=== PATIENT | female | born 1990 | race African-American/Black ===

== ENCOUNTER 2022-06-21 19:16 | Outpatient (CLI) | payer MEDICAID, SELFPAY ==
[2022-06-21 21:15] LABS: Cholesterol* 173 mg/dL (90-199); HDL Cholesterol* 63 mg/dL (>=50); LDL Cholesterol Calculated 54 mg/dL (<100); Triglycerides* 278 mg/dL (40-149)
[2022-06-21 21:53] LABS: HIV 1/2/P24 Combo Screen* Negative (Negative)
[2022-06-21 22:10] LABS: Hepatitis B Surface Antigen* Negative (Negative)
[2022-06-21 22:27] LABS: Hepatitis C Virus Antibody* Negative (Negative)
[2022-06-21 22:59] LABS: Chlamydia DNA Amplified* NOT DETECTED (No Detected); GC DNA Amplified* NOT DETECTED (No Detected)
[2022-06-23 23:16] LABS: Rapid Plasma Reagin (RPR) Non Reactive (Non Reactive)
== END 2022-06-21 19:17 | disposition home or self-care (01) ==
PROVIDERS: Visit Provider Registered Nurse
DX: Z01.419 Encounter for gynecological examination (general) (routine) without abnormal findings (principal); I10 Essential (primary) hypertension; E66.01 Morbid (severe) obesity due to excess calories; F41.9 Anxiety disorder, unspecified; Z11.3 Encounter for screening for infections with a predominantly sexual mode of transmission; Z13.9 Encounter for screening, unspecified; Z11.4 Encounter for screening for human immunodeficiency virus [HIV]
CPT/HCPCS: 80061; 86592; 86703; 86803; 87340; 87491; 87591

== ENCOUNTER 2024-01-29 17:10 | Emergency (ER) | payer MEDICAID, SELFPAY ==
[2024-01-29 17:15] VITALS: BP 133/87; PULSE 82; RESP 20; TEMP 36.7; O2SAT 99; BMI 37.8
--- NOTE | 2024-01-29 17:24 | ED.ALLEREA ---
HPI - Allergic Reaction General Time Seen by Provider: 17:24 Date Seen: 01/29/24 Chief complaint: Allergic Reaction Stated complaint: skin irritation Time Seen by Provider: 01/29/24 17:24 Source: patient and RN notes reviewed Mode of arrival: ambulatory Limitations: no limitations History of Present Illness HPI narrative: Swetha is a very pleasant 33-year-old female with a history of sickle cell trait, hypertension who comes to the emergency room with the onset of hives on her left arm. Patient states that she woke in the night and had itching in her upper shoulder with just a small area or bump. He took Benadryl at that time at 0200 hours. This afternoon she has had increasing redness raise areas on her left arm. Two large baseball sized areas on the dorsal and volar aspect of her upper arm as well as a smaller area on her shoulder. They are very itchy. She cannot recall any bug bites and has not been outside. She has no pets in her home. She notes that she has been clearing her throat a little bit today but denies a sore throat. Adamantly denies possible exposure to tick bites that she does not really go into the andre. He denies any new perfumes lotions or foods. Should this is not happened to her in the past. She denies cough or congestion. Related Data Home Medications ?Medication ?Instructions ?Recorded ?Confirmed famotidine 40 mg tablet 40 mg PO .hs 06/21/22 01/29/24 cholecalciferol (vitamin D3) 25 25 mcg PO DAILY 07/08/23 01/29/24 mcg (1,000 unit) tablet cyanocobalamin (vitamin B-12) 1,000 mcg PO DAILY 07/08/23 01/29/24 1,000 mcg tablet hydrochlorothiazide 25 mg tablet 25 mg PO DAILY 07/08/23 01/29/24 losartan 100 mg tablet 100 mg PO DAILY 07/08/23 01/29/24 multivitamin 1 tab PO DAILY 07/08/23 01/29/24 Previous Rx's ?Medication ?Instructions ?Recorded omeprazole 40 mg capsule,delayed 40 mg PO QDAY GERD #90 caps 06/27/22 release Allergies Allergy/AdvReac Type Severity Reaction Status Date / Time droperidol Allergy Severe Anxiety Verified 01/29/24 17:20 Review of Systems Status of ROS Reports: 10 or more systems reviewed and unremarkable except as noted in History and below Const Denies: fever, chills or fatigue Eyes Denies: change in vision ENMT Denies: throat pain, neck pain, throat swelling, difficulty swallowing or nasal congestion Cardio Denies: chest pain, swelling of feet/ankles, lightheadedness or shortness of breath with exertion Resp Denies: shortness of breath, cough or wheezing GI Denies: abdominal pain, nausea, vomiting or difficulty swallowing Musculo Denies: neck pain Endo Denies: fatigue Allergy/Immuno Denies: throat swelling or wheezing [facility] Medical History Vaginal delivery ?O80 - Encounter for full-term uncomplicated delivery (ICD-10) induced hypertension ?O13.9 - Gestational [-induced] hypertension without significant proteinuria, unspecified trimester (ICD-10) GERD (gastroesophageal reflux disease) ?K21.9 - Gastro-esophageal reflux disease without esophagitis (ICD-10) Gastrointestinal complaints, nonspecific ?R19.8 - Other specified symptoms and signs involving the digestive system and abdomen (ICD-10) Surgical History History of tonsillectomy ?Z90.89 - Acquired absence of other organs (ICD-10) History of cervical cerclage ?Z98.890 - Other specified postprocedural states (ICD-10) H/O gastric sleeve ?Z90.3 - Acquired absence of stomach [part of] (ICD-10) Family History Mother High blood pressure Father High blood pressure Social History Smoking Status: Current every day smoker Do you use any of these nicotine containing products: None How often do you have a drink containing alcohol: never How often do you have six or more drinks on one occasion: Never AUDIT-C Alcohol total score: 0 Non-prescribed substance use: denies use Little interest or pleasure in doing things: several days Feeling down, depressed, or hopeless: several days Exam Narrative: Exam Narrative: Alert and oriented. Mentation normal speech is normal. Face symmetrical without any swelling. No swelling of the mucous membranes. Heart with regular rate and rhythm and lungs are clear in all lung albarran. Abdomen soft. Lower extremities without edema. Examination of the left arm shows a softball sized area of erythema with leading edge Measuring about 7 cm on the area just below the deltoid and on the volar surface as well. on the shoulder there is a quarter-size area of erythema with leading edge. Her on her back there is a flat area of erythema that is pruritic. No other areas noted on trunk abdomen legs. Unable to ascertain central clearing. Not excessively warm to the touch. Const: Vital Signs, click to edit/add: Vital Signs - 24 hr 01/29/24 17:15 Temperature 98.1 F Pulse Rate [Pulse Oximeter] 82 Respiratory Rate 20 Blood Pressure [Ri ght Upper Arm] 133/87 Pulse Oximetry 99 Oxygen Delivery Me thod Room Air Documenting provider has reviewed patient's vital signs: yes Course Course ED Course: At this time patient cannot identify any new foods perfumes detergents and systemic reaction would be unusual as the lesions appear to be limited to the left upper extremity. Patient is adamant that she did not have opportunity to experience any tick bites. He will check for strep and check a urinalysis to ensure this is not representing in a vasculitis wound where we would noted increased protein in the urine. Will give patient 50 of Benadryl and 60 mg of prednisone. Vital Signs Vital signs: Initial Vital Signs Temperature 98.1 F 01/29/24 17:15 Temperature Source Temporal Artery Scan 01/29/24 17:15 Pulse Rate 82 01/29/24 17:15 Respiratory Rate 20 01/29/24 17:15 Blood Pressure 133/87 01/29/24 17:15 Blood Pressure Mean 102 01/29/24 17:15 Blood Pressure Position Sitting 01/29/24 17:15 Pulse Oximetry 99 01/29/24 17:15 Oxygen Delivery Method Room Air 01/29/24 17:15 Vital Signs Temperature 98.1 F 01/29/24 17:15 Pulse Rate 82 01/29/24 17:15 Respiratory Rate 20 01/29/24 17:15 Blood Pressure 133/87 01/29/24 17:15 Pulse Oximetry 99 01/29/24 17:15 Oxygen Delivery Method Room Air 01/29/24 17:15 Temperature 98.1 F 01/29/24 17:15 Pulse Rate 82 01/29/24 17:15 Respiratory Rate 20 01/29/24 17:15 Blood Pressure 133/87 01/29/24 17:15 Pulse Oximetry 99 01/29/24 17:15 Oxygen Delivery Method Room Air 01/29/24 17:15 Medications Administered Medications: Discontinued Medications Generic Name Dose Route Start Last Admin Trade Name Saadia PRN Reason Stop Dose Admin Diphenhydramine HCl 50 mg 01/29/24 17:31 01/29/24 17:35 Diphenhydramine 25 Mg Capsule PO 01/29/24 17:32 50 mg ONCE ONE Administration Prednisone 60 mg 01/29/24 17:31 01/29/24 17:38 Prednisone 20 Mg Tablet PO 01/29/24 17:32 60 mg ONCE ONE Administration MDM - Allergic Reaction MDM Narrative Medical decision making narrative: 1. Hives-at this time I am unable to ascertain etiology. Given the fact the lesions localized to the left arm I suspect a contact allergy but cannot ascertain what that might be. No evidence of strep. Lung sounds are clear. Urinalysis without proteinuria. Patient was given Benadryl 50 mg and prednisone 60 mg. No significant change at this time but will allow patient to go home. She has no swelling of the mucous membranes, problems with swallowing, vomiting. 2. Disposition-home at this time. Prednisone 20 mg p.o. b.i.d. x5 days. Would continue antihistamine in the form of either Zyrtec or Benadryl. Return to the emergency room for worsening symptoms, swelling of the mucous membranes, difficulty swallowing, vomiting and as needed. Medical Records Attestation: I reviewed the patient's medical records. Lab Data Attestation: I reviewed the patient's lab results. Labs: Lab Results 01/29/24 01/29/24 Range/Units 17:40 18:17 Urine Color Yellow (Yellow) Urine Appearance Clear (Clear) Urine pH 5.0 (5.0-8.5) Ur Specific [place] 1.015 (1.000-1.030) Urine Protein Negative (Negative) Urine Glucose (UA) Negative (Negative) Urine Ketones Negative (Negative) Urine Blood Negative (Negative) Urine Nitrite Negative (Negative) Urine Bilirubin Negative (Negative) Urine Urobilinogen 0.2 (0.2-1.0) Ur Leukocyte Esterase Negative (Negative) Urine RBC 0-2 (0-2) Urine WBC 0-2 (0-5) Ur Squamous Epith Cells Few (None-Few) Urine Bacteria None (None) Group A Strep DNA NOT DETECTED (Not Detectd) Discharge Plan Discharge Clinical Impression: Hives Patient Disposition: Home, Self-Care Condition: Unchanged Additional Instructions: At this time your strep test is negative, your urinalysis does not show any evidence of protein to indicate a vasculitis. I am not sure what is causing this. Will have you continue an antihistamine by taking either 1 of the following Option 1-Benadryl 50 mg every 6 hours last dose tomorrow evening. Option 2-Zyrtec 10 mg every 12 hours last dose tomorrow evening I would like you to continue prednisone for the next 4 days. This is in the [employer] machine for you. Return to the emergency room for worsening symptoms and as needed. Prescriptions: No Action famotidine 40 mg tablet 40 mg PO .hs omeprazole 40 mg capsule,delayed release(DR/EC) 40 mg PO QDAY Qty: 90 3RF multivitamin Tablet 1 tab PO DAILY cyanocobalamin (vitamin B-12) 1,000 mcg tablet 1,000 mcg PO DAILY hydrochlorothiazide 25 mg tablet 25 mg PO DAILY losartan 100 mg tablet 100 mg PO DAILY cholecalciferol (vitamin D3) 25 mcg (1,000 unit) tablet 25 mcg PO DAILY Follow Up/Referrals: Provider,Not a Local [Primary Care Provider] - Stand Alone Forms: [employer] Info Instructions
[2024-01-29] MEDS: diphenhydrAMINE 25 MG CAPSULE 50 MG PO (17:35)
--- OUTSIDE RECORDS SUMMARY | 2024-01-29 17:37 | XMS_ITS | Clinical Summary ---
Author Organization [facility] Address [place], [place] [address] Care Team Providers Care Nurse Gynecology Name Role Phone Que SALDAÑA MD, Thaddeus Michelle Unavailable [phone] Meg Maria MD Primary Care Prov ider Allergies Active Allergy Reactions Criticality Noted Date Comments Droperidol Anxiety 10/13/2014 Nsaids (Non-Steroidal Anti-Inflammatory Drug) Other - Describe In Comment Field High 06/28/2018 Ulcers gastric sleve Ulcers gastric sleeve; (Abstracted from [facility] Everywhere) Medications Medication Sig Dispensed Refills Start Date End Date Status Blood Pressure Monitor KitIndications:HTN (hypertension) Frequency of testin-3 times a week 1 Each 01/13/2023 Active albuterol HFA (Ventolin HFA) 90 mcg/actuation inhalerIndications :Mild intermittent asthma with exacerbation Inhale 1-2 Puffs by mouth every 4 hours if needed for Wheezing. 18 g 02/17/2023 Active cyanocobalamin (Vitamin B-12) 1,000 mcg tabletIndications: S/P laparoscopic sleeve gastrectomy Take 1 Tablet (1,000 mcg) by mouth once daily. 90 Tablet 3 05/23/2023 Active famotidine (PEPCID) 40 mg tabletIndications: Chronic GERD Take once daily as needed. 05/23/2023 Active multivitamin (MVI) tabletIndications: S/P laparoscopic sleeve gastrectomy Take 1 Tablet by mouth once daily. 90 Tablet 3 05/23/2023 Active cholecalciferol (Vitamin D) 1,000 unit capsuleIndications :S/P laparoscopic sleeve gastrectomy Take 1 Capsule (1,000 units) by mouth once daily. 90 Capsule 3 05/23/2023 Active omeprazole (PRILOSEC) 40 mg Delayed-Release capsuleIndications :Chronic GERD Take 1 Capsule (40 mg) by mouth once daily before a meal. 90 Capsule 3 06/19/2023 Active nicotine 14 mg/24 hr (NICODERM; HABITROL) 14 mg/24 hr patchIndications:T obacco consumption Apply 1 Patch on dry, clean, hairless skin once daily. 14 Patch 3 09/07/2023 Active losartan (COZAAR) 100 mg tabletIndications: HTN (hypertension) TAKE 1 TABLET(100 MG) BY MOUTH EVERY DAY 90 Tablet 3 09/13/2023 Active hydroCHLOROthiazid e 25 mg tabletIndications: HTN (hypertension) TAKE 1 TABLET(25 MG) BY MOUTH EVERY DAY 90 Tablet 2 10/06/2023 Active azithromycin (ZITHROMAX) 250 mg tabletIndications: Acute pharyngitis, unspecified etiology Take 500 mg (2 tabs) by mouth on day 1, then 250 mg (1 tab) daily for days 2-5. 6 Tablet 12/05/2023 Discontinue d(*Med complete/Re gimen complete/Le zulay of care change) Active Problems Problem Noted Date Diagnosed Date Pap smear for cervical cancer screening 09/18/19 24 Overview: 08/2023 NIL/HPV Negative Plan: HPV based testing due 08/2028 Thiamine deficiency 05/23/2023 Vitamin D deficiency 05/23/2023 Chronic GERD 05/12/2022 HTN (hypertension) 05/12/2022 Mild intermittent asthma with exacerbation 05/12 Anxiety and depression 11/30/2020 S/P laparoscopic sleeve gastrectomy 04/30/2018 Overview: Laparoscopic vertical sleeve gastrectomy and hiatal hernia repair with suture PLEASE DO NOT SCHEDULE ELECTIVE SURGERY FOR 30 DAYS, UNTIL AFTER 05/30/2018 Laparoscopic vertical sleeve gastrectomy and hiatal hernia repair with suture PLEASE DO NOT SCHEDULE ELECTIVE SURGERY FOR 30 DAYS, UNTIL AFTER 05/30/2018 Prediabetes 11/03/2017 Gastroesophageal reflux disease without esophagi tis 12/18/2014 (sickle cell trait) 05/11/2013 Overview: Electrophoresis from [facility] confirms sickle trait, 04/18/2013. Overview: Electrophoresis with 36% hgb S Chronic daily headache 10/16/2012 Resolved Problems Problem Noted Date Diagnosed Date Resolved Date -induced hypertensi on in third trimester 04/01/2015 05/23/2023 Vaginal delivery 03/31/2015 05/23/2023 Carrier or suspected carrier of group B Streptococcus 03/03/2015 05/23/2023 Anemia, antepartum(648.23) 03/02/2015 0 01/05/2024 Supervision of other normal 12/18/2014 01/05/2024 Overview: Transfer OB:UA/UC, and Varicella ordered. OB transfer from [facility], Care Everywhere Records reviewed. Labs: type and screen- O+, UPT-positive, Hgb-11.6, WBC-9.27, PLT-246, HBS-non reactive, RPR-non reactive, Rubella-positive, HIV-non reactive, GC/Chlamydia-09/18/14 negative, NT Testing-, Quad screen-, CF-, Dating US-09/17/14 11 w PARDEEP 04/08/15. 04/18/13-positive for sickle cell trait. 2009 & 2013 Vag delivery; Cerclage, [facility] 2007 demiese, twins @ 16 w 10/2014 Cerclage, Que Group B beta streptococcus positive. Cervical cerclage suture present 11/21/2014 05/23/2023 Supervision of other normal 10/13/2014 02/12/2015 Overview: Ultrasound at [facility] 09/17/2014 at 11 weeks, estimated due date 04/08/2015. [facility] labs 09/18/2014: O positive, Hep B NR, HIV NR, RPR NR, Hemoglobin 11.6 gm/dl, Pap negative. Chlamydia and GC both negative. Thaddeus Grey III, MD .............. 10/13/2014 2:40 PM Cerclage placed 5/8/15 Threatened premature labor, unspecified as to episode of care 08/29/2007 10/13/2014 Twin , antepartum 08/24/2007 0 10/13/2014 Incompetence of cervix 08/24/200701/04 Supervision of high-risk pre gnancy of young primigravida 08/24/2007 10/13/2014 Unspecified antepartum hemor rhage, unspecified as to episode of care(641.90) 08/24/2007 10/13/2014 Anemia, unspecified 08/24/2007 10/14/19 15 Encounters Date Type Department Care Team Description 01/26/2024 2:15 PM CDT Orders Only [facility] [address] [place] [address] Lab, [place] Lab 01/26/2024 Travel 01/24/2024 Telephone [facility] [address] [place] [address] Meg Maria MD Lab (Pt following up on message dated 01/08/24 regarding Pt having a B12 shot) 01/05/2024 1:00 PM CDT Office Visit [facility] [address] [place] [address] Meg Maria MD Lab 01/05/2024 Travel 01/02/2024 Telephone [facility] [address] [place] [address] Meg Maria MD Appointment 12/05/2023 E-Visit [facility] [address] [place] [address] Meg Maria MD Strep from Last 3 Months Immunizations Name Administration Dates Next Due COVID-19 vaccine ([employer] NTech 30mcg/0.3mL) ELVA POON 01/16/2021 DTP 12/28/1994, 4,10/28/1993,08/26 Hepatitis B (Peds) 01/10/2002, 2,01/17/2001,07/05 Human Papilloma Virus Vaccine 02/20/2007, 007 Influenza Virus, Unspecified 03/26/2018 Influenza, IIV4 04/02/2015, 3,04/01/2010,04/08 MMR 01/17/2001,1993 Meningococcal Vaccine (Menomune) 12/20/2006 Oral Polio Vaccine 12/28/1994, 4,10/28/1993,08/26 Tdap 01/05/2024, 4,09/05/2013,01/19,12/28/1994,04/21/1994,10/28/1993 ,1993 Varicella Vaccine 12/20/2006 Family History Medical History Relation Name Comments Good Health Daughter Other Father Hgb S, Stroke Father Unknown Maternal Grandfather Heart Disease Mother On BP med to r egulate PVC 's Other Mother palpitations Good Health Paternal Grandfather Parkinsonism Paternal Grandfather Good Health Paternal Grandmother Good Health Sister Good Health Son Relation Name Status Comments Daughter Alive Father Alive Maternal Grandfather Maternal Grandmother (Age 56) he art disease Mother Alive Paternal Grandfather Alive Paternal Grandmother Alive Sister Alive Son Alive Social History Tobacco Use Types Packs/Day Years Used Date Smoking Tobacco: Every Day Cigarettes 0.3 16.2 Started: 11/09/2007 Cigars Smokeless Tobacco: Former Quit: 10/10/2012 Tobacco Cessation:Ready to Q uit: Yes; Counseling Given: No Alcohol Use Standard Drinks/Week Comments Yes 21 (1 standard drink = 0.6 oz pu re alcohol) 2-3 glasses wine per day PHQ-2 Answer Date Recorded PHQ-2 TOTAL SCORE 1 05/23/2023 Social Connections Answer Date Recorded Frequency of Communication with Friends and Fami ly 0 10/09/2023 Alcohol Use Answer Date Recorded How often do you have a drink containing alcohol ? 4 04/24/2023 How many drinks containing a lcohol do you have on a typical day when you are drinking? 0 04/24/2023 How often do you have five or more drinks on one occasion? 0 04/24/2023 Financial Resource Strain Answer Date R ecorded Difficulty of Paying Living Expenses 2 10/09/2023 Difficulty of Paying Living Expenses 1 10/09/2023 Food Insecurity Answer Date Recorded Worried About Running Out of Food in the Last Ye ar 2 10/09/2023 Transportation Needs Answer Date Record ed Lack of Transportation (Medical) 1 10/09/2023 Housing Stability Answer Date Recorded Unable to Pay for Housing in the Last Year 1 10/09/2023 Sex and Gender Information Value Date Recorded Sex Assigned at Not on file Gender Identity Not on file Sexual Orientation Not on file Obstetrics History Para Term AB IAB SAB Ectopic Multiple Livin g Live Births 5 3 3 0 2 0 1 0 0 3 3 Date Outcome GA Total Labor Labor/2nd/3rd Weight Sex Type Anes PTL Jazmin A1 A5 Name Clin AB ELECTI VE AB Demis e 2007 SAB 16w 0d Comments:Twins 2009 Term 37w 1d 4h 00m/ 3.77 kg (8 lb 5 oz) M Vag Epidur al Livin g K'daniela i [facility] Comments:Cerclage 2013 Term 39w 6d 12h 00m/ 3.77 kg (8 lb 5 oz) F Vag Epidur al Livin g Nikya [facility] Comments:Cerclage 2014 Term 38w 6d 3.94 kg (8 lb 11 oz) F Epidur al Y Livin g 8 9 Tania h Helen Complications:None Comments O Pos GBS Pos 10/2013 Last Filed Vital Signs Vital Sign Reading Time Taken Comments Blood Pressure 136/88 01/05/2024 1:05 PM CDT Pulse 63 01/05/2024 1:05 PM CDT Temperature 36.8 ??C (98.2 ??F) 10/09/2023 11:58 AM C DT Respiratory Rate 20 11/08/2017 1:15 PM CDT Oxygen Saturation 98% 01/05/2024 1:05 PM CDT Inhaled Oxygen Concentration - - Weight 99.3 kg (219 lb) 10/09/2023 3:14 PM CDT w ith shoes Height 165 cm (5' 4.96) 09/07/2023 9:13 AM CDT Body Mass Index 36.49 09/07/2023 9:13 AM CDT Plan of Treatment Health Maintenance Due Date Last Done Comments Pneumococcal series for age 6-64 (1 of 2 - PCV) 08/27/1995 Hepatitis C screening for ag e 18-79 08/27/2007 COVID-19 vaccine series ( season) 2023 06/08/2021, 01/16/2021 Influenza for age 9-49 02/11/2024 8, 04/02/2015, 04/18/2013, Additional history exists Depression screening for age 12+ 05/26/2024 05/26/2023, 05/23/2023, 01/13/2023, Additional history exists BMI (ht and wt on same day) for age 18+ 09/06/2024 09/07/2023, 01/13/2023, 11/26/2019, Additional history exists Pap test for age 21-65 09/06/2026 , 09/07/2023, 06/21/2022, Additional history exists Tetanus booster 01/04/2034 01/05/2024, 0 01/2014, 09/05/2013, Additional history exists HIV for age 15-65 Completed 05/23/2023, 07/31/2015 Tdap Completed 01/05/2024, 0 01/2014, 09/05/2013, Additional history exists Goals Goal Patient Goal Type Associated Problems Recent Progress Patient-Stated? Author BLOOD PRESSURE - Maintains BP less than 130/80 Blood Pressure Christy Sorto Procedures Procedure Name Priority Date/Time Associated Diagnosis Comments VITAMIN B12 Routine 01/26/2024 2:09 PM CDT S/P laparoscopic sleeve gastrectomy BASIC METABOLIC PANEL Routine 01/05/2024 1:50 PM CDT S/P laparoscopic sleeve gastrectomy VITAMIN B1 (THIAMINE) BLOOD Routine 01/05/2024 1:50 PM CDT S/P laparoscopic sleeve gastrectomy VITAMIN B12 Routine 01/05/2024 1:50 PM CDT S/P laparoscopic sleeve gastrectomy HPV THIN PREP Routine 09/07/2023 9:50 AM CDT Pap smear for cervical cancer screening ANTI HIV 1/2 Routine 05/23/2023 12:20 PM [employer] OFFICE DEVELOPER Vaginal discharge from Last 3 Months or Most Recently Relevant to Health Maintenance Results * VITAMIN B12 (01/26/2024 2:09 PM CDT) Only the most recent of2 resultswithin the time period is included. VITAMIN B12 1,116 232 - 1,245 pg/mL 01/27/2024 12:10 AM CDT [facility] Blood BLOOD SPECIMEN / Unknown Venipuncture / Unknown 01/26/2024 2:09 PM CDT 01/26/2024 2:09 PM CDT Narrative [facility] - 01/27/2024 12:10 AM CDT Biotin supplements may cause clinically significant interference for this test assay. ??If interference is suspected, it is strongly recommended that biotin is discontinued for at least one week prior to retesting. Meg Maria MD CHEMISTRY [facility] [address] [place] [id number], * VITAMIN B1 (THIAMINE) BLOOD (01/05/2024 1:50 PM CDT) Pathologist [facility] VITAMIN B1 WHL BLD 104.1 66.5 - 200.0 nmol/L 01/08/2024 12:[address] [facility] Blood BLOOD SPECIMEN / Unknown Venipuncture / Unknown 01/05/2024 1:50 PM CDT 01/05/2024 1:51 PM CDT Narrative [facility] - 01/08/2024 12:07 PM CDT Test(s) 899295-Jur. B1, Whole Blood was developed and its performance characteristics determined by [employer]. It has not been cleared or approved by the Food and Drug Administration. Performed at: ??[address] ??[id number] Traveling Phlebotomist: Oh Santana MD, Phone: ??[phone] Meg Maria MD SEND OUTS [facility] ([facility]) [address] [place] [address], * (ABNORMAL) BASIC METABOLIC PANEL (01/05/2024 1:50 PM CDT) SODIUM 139 136 - 145 mmol/L 01/06/2024 1:26 AM CDT [facility] POTASSIUM 4.5 3.5 - 5.1 mmol/L 01/06/2024 1:26 AM T [facility] CHLORIDE 104 98 - 107 mmol/L 01/06/2024 1:26 AM [facility] CO2,TOTAL 27 22 - 29 mmol/L 01/06/2024 1:26 AM [facility] ANION GAP 8 5 - 18 01/06/2024 1:26 AM [facility] GLUCOSE 100(H) 70 - 99 mg/dL 01/06/2024 1:26 AM T [facility] CALCIUM 9.4 8.6 - 10.0 mg/dL 01/06/2024 1:26 AM [facility] BUN 15 6 - 20 mg/dL 01/06/2024 1:26 AM [facility] CREATININE 0.84 0.50 - 0.90 mg/dL 01/06/2024 1:26 AM [facility] BUN/CREAT RATIO 18 10 - 20 1:26 AM [facility] eGFR >90 >90 mL/min/1.7 3m2 01/06/2024 1:26 AM [facility] Comment:As of 2021, eG FR is calculated by the CKD-EPI creatinine equation without race adjustment. ??eGFR can be influenced by muscle mass, exercise, and diet. ??The reported eGFR is an estimation only and is only applicable if the renal function is stable. Blood BLOOD SPECIMEN / Unknown Venipuncture / Unknown 01/05/2024 1:50 PM CDT 01/05/2024 1:51 PM CDT Meg Maria MD CHEMISTRY Performing Organization Address [facility]/ZIP Co de Phone Number [facility] [address] * HPV HIGH RISK (09/07/2023 9:50 AM CDT) TYPE 16 Negative Negative 09/11/2023 5:12 PM CDT [facility] TYPE 18 Negative Negative 09/11/2023 5:12 PM CDT [facility] OTHER HIGH RISK TYPES Negative Negative 09/11/2023 5:12 PM CDT [facility] Other (Cervical) Non-Blood / Unknown 09/07/2023 9:50 AM CDT 09/07/2023 5:37 PM CDT Narrative [facility] - 09/11/2023 5:12 PM CDT HPV types 16, 18, 31, 33, 35, 39, 45, 51, 52, 56, 58, 59, 66 and 68 DNA were undetectable or below the pre-set threshold. Methodology: Chelsey Earnest 4800 HPV Test Rodolfo Peña DO MICROBIOLOGY Performing Organization Address [facility] Co de Phone Number [facility] [address] * ANTI HIV 1/2 (05/23/2023 12:20 PM CREDIT FRONT OFFICE DEVELOPER) HIV-1/HIV-2 SCREEN Non-Reacti ve Non-Reacti ve 05/23/2023 9:40 PM CREDIT FRONT OFFICE DEVELOPER [facility] Comment:HIV-1 p24 and HIV-1/ HIV-2 Ab Not Detected. Blood BLOOD SPECIMEN / Unknown Venipuncture / Unknown 05/23/2023 12:20 PM CREDIT FRONT OFFICE DEVELOPER 05/23/2023 12:20 PM CREDIT FRONT OFFICE DEVELOPER Meg Maria MD SEND OUTS [facility] [employer] [address] [place] [address], from Last 3 Months or Most Recently Relevant to Health Maintenance Advance Directives * Full Code (Latest Code Status on File) Date Activated Date Inactivated Comments 03/31/2015 7:08 AM 04/02/2015 3:22 PM * Full Code Date Activated Date Inactivated Comments 03/30/2015 9:42 PM 03/31/2015 7:08 AM * Full Code Date Activated Date Inactivated Comments 03/30/2015 4:56 PM 03/30/2015 9:42 PM * Full Code Date Activated Date Inactivated Comments 03/11/2015 5:58 PM 03/11/2015 10:14 PM * Full Code Date Activated Date Inactivated Comments 03/06/2015 11:37 AM 03/07/2015 2:37 AM Care Teams Nurse Gynecology Relationship Specialty Start Date End Date Meg Maria MD [address] [place] [phone] PCP - General Family Practice 08/03/23 Thaddeus Grey III, MD [employer] Obstetrics and Gynecology 03/26/15
[2024-01-29] MEDS: predniSONE 20 MG TABLET 60 MG PO (17:38)
[2024-01-29 18:25] LABS: Strep A DNA Probe* NOT DETECTED (Not Detectd)
[2024-01-29 18:26] LABS: Appearance Urine Clear (Clear); Bilirubin Urine Negative (Negative); Blood Urine Negative (Negative); Color Urine Yellow (Yellow); Glucose Urine Negative (Negative); Ketones Urine Negative (Negative); Leukocyte Esterase Urine Negative (Negative); Nitrite Urine Negative (Negative); Protein Urine Negative (Negative); Specific Gravity Urine 1.015 (1.000-1.030); Urobilinogen Urine 0.2 (0.2-1.0)
[2024-01-29 18:27] LABS: RBC Urine 0-2 (0-2); Squamous Epithelial Cell Urine Few (None-Few); WBC Urine 0-2 (0-5)
== END 2024-01-29 18:43 | disposition home or self-care (01) ==
PROVIDERS: Emergency Provider Family Medicine
DX: L50.9 Urticaria, unspecified (principal)
CPT/HCPCS: 81001; 87651; 99283; 99284; A9270; J7512